=== PATIENT | female | born 1965 | race Caucasian/White ===

== ENCOUNTER 2019-07-13 10:58 | Outpatient (CLI) | payer BC | END 2019-07-13 10:59 | disposition home or self-care (01) | LOC: CTENTCT 10:58 | PROVIDERS: ATTEND Otolaryngology Plastic Surgery within the Head & Neck | DX: J01.91 Acute recurrent sinusitis, unspecified (principal) | CPT/HCPCS: 70486 ==

== ENCOUNTER 2019-07-28 14:45 | Outpatient (CLI) | payer BC ==
--- NOTE | 2019-07-28 15:34 | ULT ---
US Thyroid STANDARD: 07/28/2019 12:00 AM CLINICAL INDICATION: Multinodular goiter. COMPARISON: None. FINDINGS: The right lower lobe has been removed.. The left thyroid lobe measures 4.5cm. 2 small nodules are seen in the left thyroid lobe. The largest nodule measures 1.1 cm in size and is slightly hypoechoic, well-circumscribed, and wider than tall. No suspicious calcifications are seen within either nodule. No cervical lymphadenopathy is noted. IMPRESSION: 2 left thyroid nodules. TIRADS category 4 ; a follow-up ultrasound in one years, 2 years, 3 years, and 5 years is recommended per recent recommendations.
--- NOTE | 2019-07-28 15:41 | ULT ---
EXAM: Soft tissue ultrasound of the left neck HISTORY: Palpable mass in the left neck COMPARISON: None TECHNIQUE: Multiplanar grayscale and color Doppler images were obtained in a left neck ultrasound. Im ages of the opposite side of the neck were performed for comparison. FINDINGS: At the area of palpable abnormality in the left neck there is a cystic structure measuring 1.0 cm in size within the parotid gland. No solid mass is seen. A normal-appearing intraparotid lymph node is seen on the left. Images of the right parotid gland also shows a normal appearing right intraparotid lymph node. IMPRESSION: Small cyst seen in the left parotid gland. No obvious solid component to the wall of the cyst is seen.
== END 2019-07-28 14:46 | disposition home or self-care (01) ==
LOC: BICULT 14:45
PROVIDERS: ATTEND Otolaryngology Plastic Surgery within the Head & Neck
DX: E04.2 Nontoxic multinodular goiter (principal); K11.8 Other diseases of salivary glands
CPT/HCPCS: 76536; 76999

== ENCOUNTER 2023-01-09 13:05 | Outpatient (CLI) | payer BC | END 2023-01-09 13:06 | disposition home or self-care (01) | LOC: ULT 13:05 | PROVIDERS: ATTEND Otolaryngology Plastic Surgery within the Head & Neck | DX: E04.1 Nontoxic single thyroid nodule (principal) | CPT/HCPCS: 76536 ==